=== PATIENT | male | born 1980 | race Caucasian/White ===

== ENCOUNTER 2017-04-12 17:30 | Emergency (ER) | payer MEDICAID ==
[2017-04-12] MEDS ORDERED: predniSONE 20 MG TABLET PO STA (18:22)
--- NOTE | 2017-04-12 18:25 | ED Physician Documentation ---
History of Present Illness - Stated complaint Stated Complaint: FEVER/RASH - Chief complaint Chief Complaint: General - History obtained from History obtained from: Patient - History of Present Illness Timing: Other (He has multiple food allergies. Ate Mussels 5 days ago with immediate vomiting then hives. Then soy milk 3 days ago with hives again which resolved. Today with more significant rash BUE sparing palms and trunk.) Review of Systems Constitutional: denies: Fever, Chills Nose: denies: Rhinorrhea / runny nose, Congestion Cardiac: denies: Chest pain / pressure, Palpitations Respiratory: denies: Dyspnea, Cough GI: denies: Abdominal Pain PD PAST MEDICAL HISTORY - Present Medications Home Medications: Ambulatory Orders Medication Instructions Recorded Confirmed Fexofenadine/Pseudoephedrine 1 tab PO DAILY 04/12/17 04/12/17 [Jane-D 12 Hour Tablet] predniSONE [Deltasone] 20 mg PO [id number] #21 tab 04/12/17 - Allergies Allergies/Adverse Reactions: Allergies Allergy/AdvReac Type Severity Reaction Status Date / Time mussels AdvReac Rash Verified 04/12/17 17:46 PD ED PE NORMAL - Vitals Vital signs reviewed: Yes - General General: Alert and oriented X 3, No acute distress - HEENT HEENT: PERRL, EOMI, Ears normal, Pharynx benign - Neck Neck: Supple, no meningeal sign, No bony TTP - Cardiac Cardiac: RRR, No murmur - Respiratory Respiratory: No respiratory distress, Clear bilaterally - Abdomen Abdomen: Non tender - Derm Derm: Other (Papular excoriated rash to BUE forearms, not palms/trunk) - Neuro Neuro: Alert and oriented X 3, Normal speech - Psych Psych: Normal mood, Normal affect Results - Vitals Vitals: Vital Signs - 24 hr 04/12/17 04/12/17 17:42 18:32 Temperature 36.4 C L Heart Rate 133 H 90 Respiratory 22 14 Rate Blood Pressure 153/102 H 140/90 H O2 Saturation 100 100 Oxygen O2 Source Room air PD MEDICAL DECISION MAKING - ED course ED course: In contrast to the intake notes, if there was no reported fever, he did feel warm with this and has some myalgias. Some of this is concerning for a vasculitis, but he is pretty consistent that he's had this with food allergies in the past. Follow up with rheumatology or derm was advised. Either way steroid should help. Note made of heart rate of 130s on arrival but he was quite anxious, this resolved without specific intervention. Departure - Departure Disposition: 01 Home, Self Care Clinical Impression: Rash and nonspecific skin eruption Condition: Good Record reviewed to determine appropriate education?: Yes Instructions: ED Erythema Prescriptions: predniSONE [Deltasone] 20 mg PO [id number] #21 tab Comments: Return if worse in any way, you can continue the allergy medicine and/or Benadryl as needed for the rash as well. As discussed I recommend follow up with an tax director or her brand lead. Your blood pressure was elevated today on check in to the emergency department. This does not mean that you have hypertension, it is a common phenomenon to check into the emergency department and have elevated blood pressure. I recommend that you see your primary care physician within the week to have it rechecked when you're feeling better. Discharge Date/Time: 04/12/17 18:34
[2017-04-12] MEDS ORDERED: predniSONE 20 MG TABLET ONE (18:27)
[2017-04-12 18:33] VITALS: BP 140/90
== END 2017-04-12 18:34 | disposition home or self-care (01) ==
LOC: ED 17:30
DX: R21 Rash and other nonspecific skin eruption (principal); R03.0 Elevated blood-pressure reading, without diagnosis of hypertension
CPT/HCPCS: 99283; J7512

== ENCOUNTER 2017-04-19 18:16 | Outpatient (CLI) | payer MEDICAID | END 2017-04-19 18:17 | disposition home or self-care (01) | LOC: EMS 18:16 | PROVIDERS: ATTEND Surgery | DX: R21 Rash and other nonspecific skin eruption (principal) | CPT/HCPCS: A0425; A0429 ==

== ENCOUNTER 2017-04-20 14:28 | Outpatient (CLI) | payer MEDICAID ==
[2017-04-29 07:38] LABS: TEST RESULT REPORT (())
== END 2017-04-20 14:29 ==
LOC: LAB.R 14:28
PROVIDERS: ATTEND Nurse Practitioner Family
DX: L98.8 Other specified disorders of the skin and subcutaneous tissue (principal)
CPT/HCPCS: 81599; 87070; 87147; 87186; 87252

== ENCOUNTER 2017-11-22 09:23 | Outpatient (CLI) | payer MEDICAID | END 2017-11-22 09:24 | disposition EMS.NT | LOC: EMS 09:23 | PROVIDERS: ATTEND Surgery | DX: M25.571 Pain in right ankle and joints of right foot (principal); V48.5XXA Car driver injured in noncollision transport accident in traffic accident, initial encounter; Y92.410 Unspecified street and highway as the place of occurrence of the external cause ==